=== PATIENT | male | born 1960 | race Caucasian/White ===

== ENCOUNTER 2017-08-03 22:49 | Emergency (ER) | payer SELFPAY ==
[~2017-08-03] VITALS: Ht 177.8 cm; Wt 77.1 kg
[~2017-08-03 22:49] MED LIST: HYDROCODONE; IBUPROFEN; OXYC-199 PO; PRED20TA PO
[2017-08-03] MEDS ORDERED: ORPHENADRINE 60 MG/2 ML (NORFLEX) AMP ONE (23:19)
[2017-08-03] MEDS ORDERED: diphenhydrAMINE 50 MG/ML INJ (BENADRYL) ONE (23:19)
[2017-08-03] MEDS ORDERED: KETOROLAC 60 MG/2 ML VIAL IM ONE ×2 (23:19→23:30)
[2017-08-03] MEDS ORDERED: METH500T PO (23:22)
[2017-08-03] MEDS ORDERED: TRAM-42 PO (23:22)
[2017-08-03] MEDS ORDERED: METH4TAB PO (23:22)
--- NOTE | 2017-08-03 23:22 | ED Back Pain ---
General Chief Complaint: Back Problems Stated Complaint: BILAT LEG PAIN/BACK PAIN Nursing Triage Note: INTERMITTANT RIGHT LOWER BACK PAIN RADIATING DOWN RIGHT LEG SINCE WEDNESDAY. NO INJURY. Nursing Sepsis Screen: No Definite Risk Source of Information: Patient History of Present Illness Date Seen by Provider: Aug 03, 2017 Time Seen by Provider: 23:10 Initial Comments PT ARRIVES VIA POV FROM C/O LOWER BACK PAIN AND SPASMS, WITH RADIATION OF PAIN DOWN RIGHT LEG SYMPTOMS WORSEN WITH BENDING OVER, REACHING FORWARD OR RAISING RIGHT LEG. NO PROBLEMS WITH BOWEL OR BLADDER FUNCTION NO PARESTHESIAS OR MOTOR DEFICITS PT HAS HAD THIS ONCE BEFORE APPROXIMATELY 3 YEARS AGO. WAS SEEN HERE AND CT SCAN WAS DONE WHICH SHOWED MILD LUMBAR DISC BULGE. HAS NOT HAD ANY PROBLEMS AT ALL SINCE THEN PT STATES ON Wednesday07/30/17, HE WAS CHANGING A TIRE ON A VEHICLE AND BACK STARTED HURTING A LITTLE ON WEDNESDAY, HE WAS GETTING DRESSED, HE LEANED OVER TO PULL ON HIS PANTS AND HAD SUDDEN PAIN AND SPASMS IN LOWER BACK. PAIN AND SPASMS HAVE CONTINUED AND ARE NOW RADIATING DOWN HIS RIGHT LEG. TOOK 1 HYDROCODONE LEFT OVER FROM A DENTAL PROBLEM-NO RELIEF. HAS NOT TAKEN ANYTHING ELSE FOR PAIN Other Comments PCP: NONE Allergies and Home Medications Allergies Coded Allergies: Penicillins (Unverified Allergy, Mild, 09/26/14) Home Medications Methocarbamol 500 Mg Tablet, 500 MG PO QID, #20 Prescribed by: ORA ARCHER on 08/03/17 2322 Methylprednisolone 4 Mg Tab.ds.pk, 4 MG PO UD, #1 Prescribed by: ORA ARCHER on 08/03/17 2322 Tramadol HCl 50 Mg Tablet, 50 MG PO Q4H, #20 Prescribed by: ORA ARCHER on 08/03/17 2322 Constitutional: no symptoms reported Respiratory: no symptoms reported Cardiovascular: no symptoms reported Gastrointestinal: no symptoms reported Genitourinary: no symptoms reported Musculoskeletal: see HPI Skin: no symptoms reported Psychiatric/Neurological: No Symptoms Reported Past [id number] Hx Patient Social History Alcohol Use: Regular Use (COUPLE OF TIMES A WEEK) Recreational Drug Use: No Smoking Status: Current Everyday Smoker (1 PPD) Type Used: Cigarettes 2nd Hand Smoke Exposure: Yes Recent Foreign Travel: No Contact w/Someone Who Travel: No Recent Infectious Disease Expo: No Recent Hopitalizations: No Immunizations Up To Date Tetanus Booster (TDap): Unknown Seasonal Allergies Seasonal Allergies: No Surgeries History of Surgeries: No Respiratory History of Respiratory Disorde: No Cardiovascular History of Cardiac Disorders: No Neurological History of Neurological Disord: No Genitourinary History of Genitourinary Disor: No Gastrointestinal History of Gastrointestinal Di: No Musculoskeletal History of Musculoskeletal Dis: Yes (SCIATICA) Endocrine History of Endocrine Disorders: No HEENT History of HEENT Disorders: No Cancer History of Cancer: No Psychosocial History of Psychiatric Problem: No Integumentary History of Skin or Integumenta: No Blood Transfusions History of Blood Disorders: No Family Medical History Significant Family History: No Pertinent Family Hx Physical Exam Vital Signs Vital Sign - Last 12Hours 08/03/17 22:50 Temp 97.7 Pulse 92 Resp 18 B/P (MAP) 124/93 (103) Pulse Ox 95 O2 Delivery Room Air Capillary Refill : Less Than 3 Seconds General Appearance: No Apparent Distress, WD/WN Neck: Full Range of Motion, Normal Inspection, Non Tender, Supple Cardiovascular: Regular Rate, Rhythm, No Edema, No JVD, No Murmur, Normal Peripheral Pulses Respiratory: Normal Breath Sounds, No Accessory Muscle Use, No Respiratory Distress Peripheral Pulses: 3+ Dorsalis Pedis (R), 3+ Left Dors-Pedis (L) Gastrointestinal: Non Tender, Soft Back: No CVA Tenderness, Decreased Range of Motion, Muscle Spasm, Other ( TENDERNESS TO LUMBAR PARAVERTEBRAL MUSCLES WITH SPASMS--HAS SOME MILD TENDERNESS OVER RIGHT > LEFT SI JOINTS, OTHERWISE NO BONY TENDERNESS. DTR'S INTACT BILATERALLY. + STRAIGHT LEG RAISING ON RIGHT AT APPROXIMATELY 30 DEGREES. 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 Skin: Normal Color, Warm/Dry, No Rash Progress/Results/Core Measures Results/Orders My Orders Orders - ORA ARCHER DO Ketorolac Injection (Toradol Injection) (08/03/17 23:30) Orphenadrine Injection (Norflex Injectio (08/03/17 23:30) Diphenhydramine Injection (Benadryl Inje (08/03/17 23:30) Diphenhydramine Injection (Benadryl Inje (08/03/17 23:19) Ketorolac Injection (Toradol Injection) (08/03/17 23:19) Orphenadrine Injection (Norflex Injectio (08/03/17 23:19) Medications Given in ED Current Medications Medications Dose Ordered Sig/Álvaro Route Start Time Stop Time Status Last Admin Dose Admin Diphenhydramine HCl 50 mg ONCE ONCE IM 08/03/17 23:30 08/03/17 23:31 DC 08/03/17 23:23 50 MG Ketorolac Tromethamine 60 mg ONCE ONCE IM 08/03/17 23:30 08/03/17 23:31 DC 08/03/17 23:24 60 MG Orphenadrine Citrate 60 mg ONCE ONCE IM 08/03/17 23:30 08/03/17 23:31 DC 08/03/17 23:23 60 MG Vital Signs/I&O Vital Sign - Last 12Hours 08/03/17 08/03/17 08/03/17 08/03/17 22:50 23:24 23:24 23:49 Temp 97.7 97.7 97.7 97.7 Pulse 92 92 Resp 18 18 B/P (MAP) 124/93 (103) Pulse Ox 95 95 O2 Delivery Room Air Blood Pressure Mean: 103 Departure Impression Impression: Primary Impression: Acute low back pain with right-sided sciatica Disposition: 01 HOME, SELF-CARE Condition: Stable Departure-Patient Inst. Referrals: NO,LOCAL PHYSICIAN (PCP/Family) Primary Care Physician Patient Instructions: Low Back Pain (DC), Sciatica (DC), Sciatica Exercises Add. Discharge Instructions: ALTERNATE ICE AND HEAT TO SORE AREA AT 20 MINUTE INTERVALS NO LIFTING OVER 5 LBS, NO TWISTING OR BENDING AT WAIST X 1 WEEK FOLLOW UP WITH LOCAL DR OF CHOICE IN 2-3 DAYS IF NO BETTER--CALL IN AM TO ARRANGE APPOINTMENT TO ESTABLISH CARE--LIST PROVIDED All discharge instructions reviewed with patient and/or family. Voiced understanding. Scripts Tramadol HCl (Ultram) 50 Mg Tablet 50 MG PO Q4H, #20 TAB Prov: ORA ARCHER DO 08/03/17 Methocarbamol (Robaxin) 500 Mg Tablet 500 MG PO QID for Muscle Spasms, #20 TAB Prov: SUZIGUICHOA K DO 08/03/17 Methylprednisolone (Medrol) 4 Mg Tab.ds.pk 4 MG PO UD, #1 PKG Prov: ORA ARCHER DO 08/03/17 ORA ARCHER DO Aug 03, 2017 23:22
[2017-08-03] MEDS ORDERED: ORPHENADRINE 60 MG/2 ML (NORFLEX) AMP IM ONE (23:30)
[2017-08-03] MEDS ORDERED: diphenhydrAMINE 50 MG/ML INJ (BENADRYL) IM ONE (23:30)
[2017-08-03 23:49] VITALS: BP 124/93
== END 2017-08-03 23:47 | disposition home or self-care (01) ==
LOC: EDUNIT# 22:49 → ER 22:50
DX: M54.31 Sciatica, right side (principal); F17.210 Nicotine dependence, cigarettes, uncomplicated; Z88.0 Allergy status to penicillin; Z79.52 Long term (current) use of systemic steroids
CPT/HCPCS: 96372; 99284

== ENCOUNTER → 2018-04-30 | Outpatient (CLI) | payer SELFPAY ==
[~2018-04-30] MED LIST changes: +METH4TAB PO; +METH500T PO; +TRAM-42 PO
--- NOTE | 2018-04-30 14:31 | Diagnostic Imaging Report ---
INDICATION: Pain of one month's duration. FINDINGS: There are degenerative changes to the acromioclavicular joint. No fracture, dislocation or loose body. No abnormal soft tissue calcifications. IMPRESSION: Some mild AC joint arthritis, but no acute appearing abnormality. Dictated by: Dictated on workstation # [id number]
== END ==
LOC: RAD 12:43
PROVIDERS: ATTEND Orthopaedic Surgery
DX: M19.011 Primary osteoarthritis, right shoulder (principal)
CPT/HCPCS: 73030

== ENCOUNTER 2018-08-19 10:15 | Outpatient (RCR) | payer BC, OTHER | END 2018-10-06 14:32 | disposition home or self-care (01) | PROVIDERS: ATTEND Orthopaedic Surgery | DX: S43.421D Sprain of right rotator cuff capsule, subsequent encounter (principal) ==